=== PATIENT | male | born 1945 | race Caucasian/White ===

== ENCOUNTER 2017-02-18 19:27 | Observation (INO) | payer MEDICARE, BC ==
--- NOTE | 2017-02-18 19:52 | Emergency Department Record ---
History of Present Illness - General Chief Complaint: Fever Stated Complaint: FEVER Time Seen by Provider: 02/18/17 19:48 Source: Patient Mode of Arrival: Ambulatory Limitations: No limitations - History of Present Illness Initial Comments: 71 yo male presents to ED for worsening fevers, chills, and cough symptoms over the past 4-5 days. Patient reports decreased energy and appetite today, reports that he just feels "crappy". Patient denies abdominal pain, but does reports 1 episodes of vomiting 4 days ago. Patient reports recent ill contact ( grand daughter), also reports that he received his influenza vaccine 1 week ago. Patient has a history of IDDM only. MD Complaint: Fever Onset/Timin -: Days(s) Associated Symptoms: Vomiting, Chills, Cough Treatments Prior to Arrival: Acetaminophen Treatment Prior to Arrival Comment:: tylenol at noon - Related Data Home Medications Medication Instructions Recorded Confirmed Last Taken Aspirin Chewable 81 mg PO DAILY 02/18/17 02/18/17 Unknown Cyanocobalamin (Vitamin B-12) 1,000 mcg SQ WEEKLY 02/18/17 02/18/17 Unknown [B-12 Compliance] Escitalopram Oxalate [Lexapro] 10 mg PO DAILY 02/18/17 02/18/17 Unknown Glimepiride [Amaryl] 4 mg PO DAILY 02/18/17 02/18/17 Unknown Insulin Glargine,Hum.rec.anlog 50 unit SQ DAILY 02/18/17 02/18/17 Unknown [Lantus Solostar] Losartan Potassium [Losartan 50 mg PO DAILY 02/18/17 02/18/17 Unknown Potassium] Metformin HCl [Metformin HCl] 1,000 mg PO BID 02/18/17 02/18/17 Unknown Omeprazole [Prilosec] 20 mg PO DAILY 02/18/17 02/18/17 Unknown Simvastatin [Simvastatin] 20 mg PO DAILY 02/18/17 02/18/17 Unknown Sitagliptin Phosphate [Januvia] 100 mg PO DAILY 02/18/17 02/18/17 Unknown Tamsulosin HCl [Flomax] 0.4 mg PO DAILY 02/18/17 02/18/17 Unknown Allergies Allergy/AdvReac Type Severity Reaction Status Date / Time No Known Drug Allergies Allergy Verified 02/18/17 19:34 Travel Screening - Travel/Exposure Within Last 30 Days Have you traveled within the last 30 days?: No - Travel/Exposure Within Last Year Have you traveled outside the [place] in the last year?: Yes Location Detail:: [place] - Additonal Travel Details Have you been exposed to anyone with a communicable illness?: No - Travel Symptoms Symptom Screening: None Review of Systems Constitutional: Reports: Chills, Fever, Malaise, Weakness Eyes: Denies: Eye discharge, Eye pain ENT: Reports: Congestion. Denies: Ear pain, Epistaxis, Throat pain Respiratory: Reports: Cough. Denies: Dyspnea Cardiovascular: Denies: Chest pain, Dyspnea on exertion Endocrine: Reports: Fatigue. Denies: Heat or cold intolerance Gastrointestinal: Reports: Nausea, Vomiting. Denies: Abdominal pain Genitourinary: Denies: Incontinence, Retention Musculoskeletal: Reports: Myalgia. Denies: Arthralgia, Back pain, Gout, Joint swelling Skin: Denies: Bruising, Change in color Neurological: Denies: Abnormal gait, Confusion, Headache, Seizure Psychiatric: Denies: Anxiety Hematological/Lymphatic: Denies: Anemia, Blood Clots Past Medical History - SOCIAL HISTORY Smoking Status: Former smoker Alcohol Use: Occasional Drug Use: None - RESPIRATORY Hx Respiratory Disorders: No - CARDIOVASCULAR Hx Cardio Disorders: No - NEURO Hx Neuro Disorders: No - GI Hx GI Disorders: No - Hx Genitourinary Disorders: Yes Hx Kidney Stones: Yes - ENDOCRINE Hx Endocrine Disorders: Yes Hx Diabetes: Yes - MUSCULOSKELETAL Hx Musculoskeletal Disorders: No - PSYCH Hx Psych Problems: Yes Hx Depression: Yes - HEMATOLOGY/ONCOLOGY Hx Hematology/Oncology Disorders: No Family Medical History Any Significant Family History?: No Physical Exam - General General Appearance: Alert, Oriented x3, Cooperative, Moderate distress Limitations: No limitations - Head Head exam: Atraumatic, Normocephalic, Normal inspection Head exam detail: negative: Abrasion, Contusion, Anaya's sign, General tenderness, Hematoma, Laceration - Eye Eye exam: Normal appearance. negative: Conjunctival injection, Periorbital swelling, Periorbital tenderness, Scleral icterus - ENT Ear exam: negative: Auricular hematoma, Auricular trauma Nasal Exam: negative: Active bleeding, Discharge, Dried blood, Foreign body Mouth exam: negative: Drooling, Laceration, Muffled voice, Tongue elevation - Neck Neck exam: Normal inspection. negative: Meningismus, Tenderness - Respiratory Respiratory exam: Normal lung sounds bilaterally. negative: Rales, Respiratory distress, Rhonchi, Stridor - Cardiovascular Cardiovascular Exam: Regular rate, Normal rhythm, Normal heart sounds - GI/Abdominal GI/Abdominal exam: Soft. negative: Rebound, Rigid, Tenderness - Rectal Rectal exam: Deferred - exam: Deferred - Extremities Extremities exam: Normal inspection. negative: Calf tenderness, Pedal edema, Tenderness - Back Back exam: Denies: CVA tenderness (R), CVA tenderness (L) - Neurological Neurological exam: Alert, Normal gait, Oriented X3 - Psychiatric Psychiatric exam: Normal affect, Normal mood - Skin Skin exam: Normal color. negative: Abrasion Type of lesion: negative: abrasion Course Vital Signs 02/18/17 19:35 Temperature 99.7 F H Pulse Rate 98 H Respiratory 18 Rate Blood Pressure 129/60 Pulse Ox 96 - Reevaluation(s) Reevaluation #1: 02/18/17 20:46 Labs reviewed, WBC 5.4, 87% neutrophils. Hgb 11.8. UA reviewed 2+ bacteria present, 16-20 WBCs present. Lactic acid 1.7. CXR: Emphysematous change, nothing acute. Patient was updated on all results, will initiate treatment with Rocephin and admit for observation. Patient and family updated on all results. Reevaluation #2: 02/18/17 20:59 Case was discussed with Vannesa Toribio, will accept admission for further treatment of the patient's systemic UTI. Medical Decision Making - Lab Data Result diagrams: 02/18/17 20:01 02/18/17 20:01 Disposition Disposition: Admit Clinical Impression: Fever chills UTI (urinary tract infection) Qualifiers: Urinary tract infection type: acute cystitis Hematuria presence: without hematuria Qualified Code(s): N30.00 - Acute cystitis without hematuria Disposition: Still a Patient at [facility] Decision to Admit: Admit from ER Decision to Admit Date: 02/18/17 Decision to Admit Time: 20:53 Condition: (2) Stable Forms: Patient Portal Access Time of Disposition: 20:53 Quality - Quality Measures Quality Measures: N/A - Blood Pressure Screening Does Patient Have Any of the Following: Active Dx of HTN Blood Pressure Classification: Pre-Hypertensive BP Reading Systolic Measurement: 129 Diastolic Measurement: 60 Screening for High Blood Pressure: Patient Exclusion, Hx of HTN [[id number]]
[2017-02-18] MEDS ORDERED: 0.9 % SODIUM CHLORIDE 1000ML 1,000 ML IV SCH (20:00)
[2017-02-18 20:15] LABS: URINE APPEARANCE CLEAR; URINE BILIRUBIN NEGATIVE (NEGATIVE); URINE BLOOD SMALL (NEGATIVE); URINE COLOR YELLOW; URINE GLUCOSE (UA) NEGATIVE (NEGATIVE); URINE KETONE NEGATIVE (NEGATIVE); URINE LEUKOCYTE ESTERASE LARGE (NEGATIVE); URINE NITRITE NEGATIVE (NEGATIVE); URINE PROTEIN TRACE (NEGATIVE)
[2017-02-18 20:15] LABS: BASO % 0.2 % (0-6); EOS % 0.9 % (0-6); HEMATOCRIT 35.1 % (42.0-52.0); HEMOGLOBIN 11.8 gm/dl (14.0-18.0); LYMPH % 7.5 % (16-45); MEAN CELL VOLUME 80.5 fl (81-97); MEAN CORPUSCULAR HGB CONC 33.6 g/dl (32-36); MEAN PLATELET VOLUME 10.1 fl (7.4-10.4); MONO % 6.4 % (0-9); PLATELET COUNT 112 K/uL (130-400); RED BLOOD COUNT 4.36 M/uL (4.40-5.70); RED CELL DISTRIBUTION WIDTH 14.4 % (11.5-14.5); WHITE BLOOD COUNT W/O DIFF 5.4 K/uL (4.2-12.2)
[2017-02-18 20:26] LABS: INFLUENZA A NEGATIVE (NEGATIVE); INFLUENZA B NEGATIVE (NEGATIVE)
[2017-02-18 20:27] LABS: URINE BACTERIA 2+; URINE WBC 16 - 20 (0-2/hpf)
[2017-02-18 20:34] LABS: PLATELET ESTIMATE DECREASED (NORMAL)
[2017-02-18 20:45] LABS: ALB/GLOB RATIO 1.2 (1.1-1.8); ALBUMIN 3.8 g/dL (4.0-5.0); ALKALINE PHOSPHATASE 168 U/L (40-129); ALT/SGPT 21 U/L (<41); AST/SGOT 22 U/L (10.0-50.0); BLOOD UREA NITROGEN 19 mg/dL (8-23); CREATININE 0.9 mg/dL (0.7-1.2); EST GLOMERULAR FILTRATION RATE > 60 mL/min; GLUCOSE,RANDOM 171 mg/dL (74-109)
[2017-02-18] MEDS ORDERED: CEFTRIAXONE SODIUM 1 GM in 0.9 % SODIUM CHLORIDE 100ML 100 ML IVPB ONE (20:52)
[2017-02-18] MEDS ORDERED: ACETAMINOPHEN 500 MG TABLET PO ONE (21:12)
[2017-02-18] MEDS ORDERED: ACETAMINOPHEN 500 MG TABLET PO PRN (21:35)
[2017-02-18] MEDS ORDERED: 0.9 % SODIUM CHLORIDE 1000ML 1,000 ML IV PRN (21:35)
[2017-02-18] MEDS ORDERED: CEFTRIAXONE SODIUM 1 GM in 0.9 % SODIUM CHLORIDE 100ML 100 ML IVPB SCH (21:35)
[2017-02-18] MEDS: METFORMIN 500 MG TABLET PO SCH (23:15)
[2017-02-19] MEDS ORDERED: LEVEMIR FLEXTOUCH 100 UNIT/ML INSULIN PEN SQ SCH (07:00)
[2017-02-19] MEDS ORDERED: PANTOPRAZOLE SODIUM 40 MG TABLET PO SCH (07:00)
[2017-02-19] MEDS: METFORMIN 500 MG TABLET PO SCH (08:17)
[2017-02-19] MEDS ORDERED: GLIMEPIRIDE 2 MG TABLET PO SCH (10:00)
[2017-02-19] MEDS ORDERED: LOSARTAN POTASSIUM 25 MG TABLET PO SCH (10:00)
[2017-02-19] MEDS ORDERED: ESCITALOPRAM 10 MG TABLET PO SCH (10:00)
[2017-02-19] MEDS ORDERED: Non-Formulary MISC (Sitagliptin Phosphate [Januvia] 100 MG) PO SCH (10:00)
[2017-02-19] MEDS ORDERED: TAMSULOSIN HCL 0.4 MG CAP.ER.24H PO SCH (10:00)
[2017-02-19 10:38] LABS: BASO % 0.2 % (0-6); EOS % 1.1 % (0-6); HEMATOCRIT 33.2 % (42.0-52.0); HEMOGLOBIN 10.9 gm/dl (14.0-18.0); LYMPH % 19.6 % (16-45); MEAN CELL VOLUME 82.6 fl (81-97); MEAN CORPUSCULAR HEMOGLOBIN 27.1 pg (27-33); MEAN CORPUSCULAR HGB CONC 32.8 g/dl (32-36); MEAN PLATELET VOLUME 10.5 fl (7.4-10.4); MONO % 13.1 % (0-9); PLATELET COUNT 109 K/uL (130-400); RED BLOOD COUNT 4.02 M/uL (4.40-5.70); RED CELL DISTRIBUTION WIDTH 14.6 % (11.5-14.5); WHITE BLOOD COUNT W/O DIFF 5.4 K/uL (4.2-12.2)
[2017-02-19 11:03] LABS: ALB/GLOB RATIO 1.1 (1.1-1.8); ALBUMIN 3.4 g/dL (4.0-5.0); ALKALINE PHOSPHATASE 142 U/L (40-129); ALT/SGPT 18 U/L (<41); AST/SGOT 21 U/L (10.0-50.0); BLOOD UREA NITROGEN 14 mg/dL (8-23); CREATININE 0.8 mg/dL (0.7-1.2); EST GLOMERULAR FILTRATION RATE > 60 mL/min; GLUCOSE,RANDOM 261 mg/dL (74-109); TOTAL PROTEIN 6.4 g/dL (6.6-8.7)
--- NOTE | 2017-02-19 11:31 | History & Physical ---
History of Present Illness - Date of Service Date of Service for History & Physical: 02/19/17 - History of Present Illness Admitting Diagnosis: UTI. IDDM. Fevers/chills History of Present Illness: 71yo male with CC of fever/chills. Has history of T2DM with insulin use, depression, kidney stones, and frequent UTI's, self catheterization. presents to ED for worsening fevers, chills, and cough symptoms over the past 4- 5 days. Patient reports decreased energy and appetite today, reports that he just feels "crappy". Patient denies abdominal pain, but does reports 1 episodes of vomiting 4 days ago. Patient reports recent ill contact (grand daughter), also reports that he received his influenza vaccine 1 week ago. While in the ED, spiked a fever of 101.1, pulse 74, bp 130/57 and pulse ox 94%. CXR showed signs of emphysema but NAP. influenza negative. CBC showed normal WBC count but 87% neutrophils. HGB low at 11.8. CMP unremarkable. LA wnl. UA showing 2+ bacteria, large leuk esterase, small amount of blood. Urine sent for culture. patient started on rocephin for UTI and admitted. 02/19/17- Patient reports feeling much better today. He denies any further fevers/chills through the night. He was not having urinary tract symptoms but admits that he doesn't always cleanse his cath supplies and does typically reuse them a few times. He says he used to follow with a urologist several years ago and was on daily prophylactic abx at one point. those were discontinued about 2 years ago. pcp: Dr. Beckford in [place]. Travel Screening - Travel/Exposure Within Last 30 Days Have you traveled within the last 30 days?: No - Travel/Exposure Within Last Year Have you traveled outside the [place] in the last year?: No Location Detail:: [place] - Additonal Travel Details Have you been exposed to anyone with a communicable illness?: No - Travel Symptoms Symptom Screening: Fever (Subjective), Joint & Muscle Aches, Weakness, Chills Review of Systems Constitutional: Reports: Chills, Fever Eyes: Denies: Eye discharge, Eye pain ENT: Denies: Congestion, Ear pain, Epistaxis, Throat pain Respiratory: Denies: Cough, Dyspnea Cardiovascular: Denies: Chest pain, Dyspnea on exertion Endocrine: Reports: Fatigue. Denies: Heat or cold intolerance Gastrointestinal: Denies: Abdominal pain, Nausea, Vomiting Genitourinary: Denies: Incontinence, Retention Musculoskeletal: Denies: Arthralgia, Back pain, Gout, Joint swelling, Myalgia Skin: Denies: Bruising, Change in color Neurological: Denies: Abnormal gait, Confusion, Headache, Seizure Psychiatric: Denies: Anxiety Hematological/Lymphatic: Denies: Anemia, Blood Clots Past Medical History - SOCIAL HISTORY Smoking Status: Former smoker Alcohol Use: Rare Drug Use: None - RESPIRATORY Hx Respiratory Disorders: No - CARDIOVASCULAR Hx Cardio Disorders: No - NEURO Hx Neuro Disorders: No Hx Neuropathy: Yes - GI Hx GI Disorders: No Hx Reflux: Yes - Hx Genitourinary Disorders: Yes Hx Kidney Stones: Yes - ENDOCRINE Hx Endocrine Disorders: Yes Hx Diabetes: Yes Hx Thyroid Disease: No - MUSCULOSKELETAL Hx Musculoskeletal Disorders: No - PSYCH Hx Psych Problems: Yes Hx Depression: Yes - HEMATOLOGY/ONCOLOGY Hx Hematology/Oncology Disorders: No Family Medical History Any Significant Family History?: No Hx Cancer: Brother/Sister Hx Diabetes: Father, Mother, Brother/Sister Hx Kidney Disease: Mother, Brother/Sister *Kidney Comment: KIDNEY FAILURE H&P Meds/Allergies - Allergies Allergies: Allergies Allergy/AdvReac Type Severity Reaction Status Date / Time No Known Drug Allergies Allergy Verified 02/18/17 19:34 - Home Medications Home Medications Medication Instructions Recorded Confirmed Last Taken Aspirin Chewable 81 mg PO DAILY 02/18/17 02/18/17 Unknown Cyanocobalamin (Vitamin B-12) 1,000 mcg SQ WEEKLY 02/18/17 02/18/17 Unknown [B-12 Compliance] Escitalopram Oxalate [Lexapro] 10 mg PO DAILY 02/18/17 02/18/17 Unknown Glimepiride [Amaryl] 4 mg PO DAILY 02/18/17 02/18/17 Unknown Insulin Glargine,Hum.rec.anlog 50 unit SQ DAILY 02/18/17 02/18/17 Unknown [Lantus Solostar] Losartan Potassium 50 mg PO DAILY 02/18/17 02/18/17 Unknown Metformin HCl 1,000 mg PO BID 02/18/17 02/18/17 Unknown Omeprazole [Prilosec] 20 mg PO DAILY 02/18/17 02/18/17 Unknown Simvastatin 20 mg PO DAILY 02/18/17 02/18/17 Unknown Sitagliptin Phosphate [Januvia] 100 mg PO DAILY 02/18/17 02/18/17 Unknown Tamsulosin HCl [Flomax] 0.4 mg PO DAILY 02/18/17 02/18/17 Unknown Previous Rx's Medication Instructions Recorded Cefdinir 300 mg PO BID #20 capsule 02/19/17 - Active Medications Active Medications: Current Medications Acetaminophen (Tylenol 500mg Tab) 1,000 mg PO Q6H PRN PRN Reason: PAIN/TEMP Aspirin (Aspirin Chewable) 81 mg PO QHS [facility] Last Admin: 02/18/17 23:14 Dose: 81 mg Escitalopram Oxalate (Lexapro) 10 mg PO DAILY [facility] Last Admin: 02/19/17 10:35 Dose: 10 mg Glimepiride (Amaryl) 4 mg PO DAILY [facility] Last Admin: 02/19/17 10:35 Dose: 4 mg Sodium Chloride () 1,000 mls @ 100 mls/hr IV .Q10H PRN PRN Reason: LARGE VOLUME IV Last Admin: 02/18/17 23:17 Dose: 100 mls/hr Ceftriaxone Sodium 1 gm/ (Sodium Chloride) 100 mls @ 100 mls/hr IVPB 2000 [facility] Stop: 02/24/17 20:01 Insulin Detemir (Levemir Flextouch) 50 unit SQ DAILYAC [facility] Last Admin: 02/19/17 07:06 Dose: 39 unit Losartan Potassium (Cozaar) 50 mg PO DAILY [facility] Last Admin: 02/19/17 10:35 Dose: 50 mg Metformin HCl (Glucophage Ir) 1,000 mg PO BIDWM [facility] Last Admin: 02/19/17 08:17 Dose: 1,000 mg Non-Formulary Medication (Sitagliptin Phosphate [Januvia]) 100 mg PO DAILY [facility] Pantoprazole Sodium (Protonix) 40 mg PO DAILYAC [facility] Last Admin: 02/19/17 07:05 Dose: 40 mg Simvastatin (Zocor) 20 mg PO QHS [facility] Last Admin: 02/18/17 23:11 Dose: 20 mg Tamsulosin HCl (Flomax) 0.4 mg PO DAILY [facility] Last Admin: 02/19/17 10:36 Dose: 0.4 mg Physical Exam - Vital Signs Vital Signs: Vital Signs - Last 24 Hrs Temp Pulse Resp BP BP Pulse Ox 02/19/17 10:34 98.3 F 66 18 123/65 96 02/19/17 07:57 20 02/19/17 03:33 98.1 F 59 L 18 119/62 94 L 02/18/17 23:28 99.1 F 02/18/17 22:28 100.6 F H 02/18/17 21:35 101.1 F H 76 20 130/57 94 L - General General Appearance: Alert, Oriented x3, Cooperative, No acute distress Limitations: No limitations - Head Head exam: Atraumatic, Normocephalic, Normal inspection Head exam detail: negative: Abrasion, Contusion, Anaya's sign, General tenderness, Hematoma, Laceration - Eye Eye exam: Normal appearance. negative: Conjunctival injection, Periorbital swelling, Periorbital tenderness, Scleral icterus - ENT Ear exam: negative: Auricular hematoma, Auricular trauma Nasal Exam: negative: Active bleeding, Discharge, Dried blood, Foreign body Mouth exam: negative: Drooling, Laceration, Muffled voice, Tongue elevation - Neck Neck exam: Normal inspection. negative: Meningismus, Tenderness - Respiratory Respiratory exam: Normal lung sounds bilaterally. negative: Rales, Respiratory distress, Rhonchi, Stridor - Cardiovascular Cardiovascular Exam: Regular rate, Normal rhythm, Normal heart sounds - GI/Abdominal GI/Abdominal exam: Soft. negative: Rebound, Rigid, Tenderness - Rectal Rectal exam: Deferred - exam: Deferred - Extremities Extremities exam: Normal inspection. negative: Calf tenderness, Pedal edema, Tenderness - Back Back exam: Denies: CVA tenderness (R), CVA tenderness (L) - Neurological Neurological exam: Alert, Normal gait, Oriented X3 - Psychiatric Psychiatric exam: Normal affect, Normal mood - Skin Skin exam: Normal color. negative: Abrasion Type of lesion: negative: abrasion Results - Labs Result Diagrams: 02/19/17 10:07 02/19/17 10:07 Labs Last 24 Hours: Laboratory Results - last 24 hr 02/19/17 02/19/17 02/19/17 07:05 10:07 10:07 WBC 5.4 RBC 4.02 L Hgb 10.9 L Hct 33.2 L MCV 82.6 MCH 27.1 MCHC 32.8 RDW 14.6 H Plt Count 109 L MPV 10.5 H Gran % 66.0 Lymphocytes % 19.6 Monocytes % 13.1 H Eosinophils % 1.1 Basophils % 0.2 Sodium 139 Potassium 4.4 Chloride 102 Carbon Dioxide 24.0 Anion Gap 13.0 BUN 14 Creatinine 0.8 Estimated GFR > 60 POC Glucose 139 H Random Glucose 261 H Calcium 8.7 L Total Bilirubin 1.30 H AST 21 ALT 18 Alkaline Phosphatase 142 H Total Protein 6.4 L Albumin 3.4 L Globulin 3.0 Albumin/Globulin Ratio 1.1 VTE H&P Assessment - Risk for VTE Risk for VTE: Yes Risk Level: High Risk Assessment Date: 02/19/17 Risk Assessment Time: 14:58 VTE Orders Placed or Will Be Placed: Yes Plan - Detailed Diagnosis and Plan (1) UTI (urinary tract infection) Status: Acute Qualifiers: Urinary tract infection type: acute cystitis Hematuria presence: without hematuria Qualified Code(s): N30.00 - Acute cystitis without hematuria Base Code: N39.0 - URINARY TRACT INFECTION, SITE NOT SPECIFIED Comment: - UA c/w UTI. urine culture pending. Started on rocephin IV. No elevations in WBC count. Fever is resolved. -will plan to discharge home today. Will have specialty clinic set up appointment with Dr. Brown to establish with a urologist. he is high risk for recurrence with self cath and diabetes, on januvia, needs to have urologist. -contine cefdinir 300mg po bid for 10 days. will contact patient if culture shows resistance -stressed importance of keeping cath supplies clean, staying adequately hydrated -follow up with PCP in 7-10 days (2) Fever chills Status: Acute Base Code: R50.9 - FEVER, UNSPECIFIED Comment: 02/19/17- resolved. afebrile today without any antipyretics. most likely cause is UTI. influenza negative and CXR shows NAP. -continue otc tylenol for fever control as needed (3) Full code status Status: Acute Base Code: Z78.9 - OTHER SPECIFIED HEALTH STATUS Comment: - patient is full code (4) DVT prophylaxis Status: Acute Base Code: [id number] - Comment: 02/19/17- higher risk with age -will start on anticoagulation if stay >24H anticipated
--- NOTE | 2017-02-19 11:38 | Discharge Summary ---
Providers Discharge Summary Date: 02/19/17 Date of admission: 02/18/17 21:17 Expected Date of Discharge: 02/19/17 Attending physician: Kevin Miller Primary care physician: BRISSA DUMONT M.D. Physical Exam - Vital Signs Vital Signs: Vital Signs - Last 24 Hrs Temp Pulse Resp BP BP Pulse Ox 02/19/17 10:34 98.3 F 66 18 123/65 96 02/19/17 07:57 20 02/19/17 03:33 98.1 F 59 L 18 119/62 94 L 02/18/17 23:28 99.1 F 02/18/17 22:28 100.6 F H 02/18/17 21:35 101.1 F H 76 20 130/57 94 L - General General Appearance: Alert, Oriented x3, Cooperative, Moderate distress Limitations: No limitations - Head Head exam: Atraumatic, Normocephalic, Normal inspection Head exam detail: negative: Abrasion, Contusion, Anaya's sign, General tenderness, Hematoma, Laceration - Eye Eye exam: Normal appearance. negative: Conjunctival injection, Periorbital swelling, Periorbital tenderness, Scleral icterus - ENT Ear exam: negative: Auricular hematoma, Auricular trauma Nasal Exam: negative: Active bleeding, Discharge, Dried blood, Foreign body Mouth exam: negative: Drooling, Laceration, Muffled voice, Tongue elevation - Neck Neck exam: Normal inspection. negative: Meningismus, Tenderness - Respiratory Respiratory exam: Normal lung sounds bilaterally. negative: Rales, Respiratory distress, Rhonchi, Stridor - Cardiovascular Cardiovascular Exam: Regular rate, Normal rhythm, Normal heart sounds - GI/Abdominal GI/Abdominal exam: Soft. negative: Rebound, Rigid, Tenderness - Rectal Rectal exam: Deferred - exam: Deferred - Extremities Extremities exam: Normal inspection. negative: Calf tenderness, Pedal edema, Tenderness - Back Back exam: Denies: CVA tenderness (R), CVA tenderness (L) - Neurological Neurological exam: Alert, Normal gait, Oriented X3 - Psychiatric Psychiatric exam: Normal affect, Normal mood - Skin Skin exam: Normal color. negative: Abrasion Type of lesion: negative: abrasion Hospitalization - Hospitalization Admission Diagnosis: UTI. IDDM. Fevers/chills - Problem List/Discharge Diagnosis (1) UTI (urinary tract infection) Status: Acute Discharge Diagnosis: Urinary tract infection type: acute cystitis Hematuria presence: without hematuria Qualified Code(s): N30.00 - Acute cystitis without hematuria Base Code: N39.0 - URINARY TRACT INFECTION, SITE NOT SPECIFIED Comment: - UA c/w UTI. urine culture pending. Started on rocephin IV. No elevations in WBC count. Fever is resolved. -will plan to discharge home today. Will have specialty clinic set up appointment with Dr. Brown to establish with a urologist. he is high risk for recurrence with self cath and diabetes, on januvia, needs to have urologist. -contine cefdinir 300mg po bid for 10 days. will contact patient if culture shows resistance -stressed importance of keeping cath supplies clean, staying adequately hydrated -follow up with PCP in 7-10 days (2) Fever chills Status: Acute Base Code: R50.9 - FEVER, UNSPECIFIED Comment: 02/19/17- resolved. afebrile today without any antipyretics. most likely cause is UTI. influenza negative and CXR shows NAP. -continue otc tylenol for fever control as needed (3) Full code status Status: Acute Base Code: Z78.9 - OTHER SPECIFIED HEALTH STATUS Comment: - patient is full code (4) DVT prophylaxis Status: Acute Base Code: [id number] - Comment: 02/19/17- higher risk with age -will start on anticoagulation if stay >24H anticipated - Hospitalization Course Disposition: Home, Self-Care Abnormal Labs: Abnormal Lab Results 02/19/17 02/19/17 02/19/17 Range/Units 07:05 10:07 10:07 RBC 4.02 L (4.40-5.70) M/uL Hgb 10.9 L (14.0-18.0) gm/dl Hct 33.2 L (42.0-52.0) % RDW 14.6 H (11.5-14.5) % Plt Count 109 L (130-400) K/uL MPV 10.5 H (7.4-10.4) fl Monocytes % 13.1 H (0-9) % POC Glucose 139 H (70-110) mg/dL Random Glucose 261 H (74-109) mg/dL Calcium 8.7 L (8.8-10.2) mg/dL Total Bilirubin 1.30 H (0.2-1.0) mg/dL Alkaline Phosphatase 142 H (40-129) U/L Total Protein 6.4 L (6.6-8.7) g/dL Albumin 3.4 L (4.0-5.0) g/dL Condition at Discharge: (2) Stable Discharge Medications - Discharge Medications Prescriptions: Cefdinir 300 mg PO BID #20 capsule Home Medications: Ambulatory Orders Aspirin Chewable 81 mg PO DAILY 02/18/17 [Last Taken Unknown] Cyanocobalamin (Vitamin B-12) [B-12 Compliance] 1,000 mcg SQ WEEKLY 02/18/17 [ Last Taken Unknown] Escitalopram Oxalate [Lexapro] 10 mg PO DAILY 02/18/17 [Last Taken Unknown] Glimepiride [Amaryl] 4 mg PO DAILY 02/18/17 [Last Taken Unknown] Insulin Glargine,Hum.rec.anlog [Lantus Solostar] 50 unit SQ DAILY 02/18/17 [ Last Taken Unknown] Losartan Potassium 50 mg PO DAILY 02/18/17 [Last Taken Unknown] Metformin HCl 1,000 mg PO BID 02/18/17 [Last Taken Unknown] Omeprazole [Prilosec] 20 mg PO DAILY 02/18/17 [Last Taken Unknown] Simvastatin 20 mg PO DAILY 02/18/17 [Last Taken Unknown] Sitagliptin Phosphate [Januvia] 100 mg PO DAILY 02/18/17 [Last Taken Unknown] Tamsulosin HCl [Flomax] 0.4 mg PO DAILY 02/18/17 [Last Taken Unknown] Cefdinir 300 mg PO BID #20 capsule 02/19/17 [Last Taken Unknown] Discharge Plan - Discharge Instructions Activity at Discharge: Resume Usual Activities As Tolerated Diet at Discharge: Diabetic Diet Instructions: Aviles Catheter Placement and Care (DC), Urinary Traction Infection in Older Adults (DC) Additional Instructions: Follow up with Dr. Brown, urologist. The [facility] specialty clinic should be contacting you to set that up. Start Cefdinir 300mg by mouth twice daily for 10 days starting tonight. We will contact you if antibiotics need to be changed based on the urine culture results. Be sure to drink plenty of water to stay adequately hydrated and make sure cath supplies are cleansed thoroughly. Please call with any questions or concerns Return to ED for any new or worsening symptoms. Quality Measures - Quality Measures Quality Measures: Advance Directives, Documentation of Current Medications in Medical Record, Elder Maltreatment Screen and Follow-Up Plan, Screening for High Blood Pressure and F/U Documented - Current Medications Quality Measure: Measure #130: Documentation of Current Medications Documentation of Current Medications: <Current Medications Documented/Reviewed> [S0004] - Blood Pressure Screening Quality Measure: Screening for High Blood Pressure and Follow-Up Documented Does Patient Have Any of the Following: Active Dx of HTN Blood Pressure Classification: Pre-Hypertensive BP Reading Systolic Measurement: 129 Diastolic Measurement: 60 Screening for High Blood Pressure: Patient Exclusion, Hx of HTN [G9744] - Advance Directives Quality Measure: Measure #47: Care Plan Advance Directives Established: No Advance Directives Information Provided To Patient: Already Provided Advance Directives on File: No Living Will: No Power of Inspector Automatic Typewriter: No Advance Care Planning: <Care Plan/Decision Maker Documented; Discussed & Documented> [0583F] - Elder Abuse Suspicion Index Screening: Elder Abuse Suspicion Index Screening Rely on people for bathing, dressing, shopping, banking, etc: No Prevented from getting food, clothes, medication, etc: No Made to feel shamed or threatened by someone: No Forced to sign papers or use money against will: No Feel afraid, touched in ways not wanted or hurt physically: No Poor eye contact, withdrawn, malnourished, cuts or bruises: No Screening Result: Negative result EASI Reference Information: Mel LEWIS, Anatoly C, Jose D, Aida Ricci.Development and validation of a tool to assist physicians identification of elder abuse: The Elder Abuse Suspicion Index (EASI ). Journal of Elder Abuse and Neglect, 2008; 20 (3): 276-300. - Elder Maltreatment Screen Quality Measures: Elder Maltreatment Screen and Follow-Up Plan Elder Maltreatment Screen: <Negative, No Follow-Up Plan Required> [W0281]
[2017-02-19] MEDS ORDERED: CEFTRIAXONE SODIUM 1 GM in 0.9 % SODIUM CHLORIDE 100ML 100 ML IVPB SCH (20:00)
[2017-02-19] MEDS ORDERED: ASPIRIN 81 MG CHEWABLE TABLET PO SCH (22:00)
[2017-02-19] MEDS ORDERED: SIMVASTATIN 20 MG TABLET PO SCH (22:00)
--- NOTE | 2017-02-20 08:41 | RADIOLOGY REPORT ---
EXAM: CHEST, TWO VIEWS HISTORY: COUGH AND FEVER. TECHNIQUE: PA and lateral upright views of the chest were obtained. Comparison: None. FINDINGS: The heart is normal in size. Calcified mediastinal lymph nodes are present. The mediastinum and pulmonary vasculature are otherwise normal. Bullous emphysematous changes are present within the upper lung beebe, right greater than left. There are no acute infiltrates or effusions. There is no pneumothorax. Degenerative changes are present within the spine. IMPRESSION: 1. NO ACUTE CHEST PATHOLOGY. 2. BULLOUS EMPHYSEMATOUS CHANGES WITHIN THE UPPER LOBES, RIGHT GREATER THAN LEFT. 3. OLD GRANULOMATOUS DISEASE. JOB NUMBER: [id number] [facility]
== END 2017-02-19 11:53 | disposition home or self-care (01) ==
LOC: ER 19:27 → MEDSURG 21:17
PROVIDERS: ADMIT Internal Medicine; ATTEND Internal Medicine
DX: N39.0 Urinary tract infection, site not specified (principal); E11.9 Type 2 diabetes mellitus without complications; Z79.4 Long term (current) use of insulin; Z79.84 Long term (current) use of oral hypoglycemic drugs; Z87.891 Personal history of nicotine dependence
CPT/HCPCS: 99285 ×2; 96374; 83605; 85025; 80053 ×2; 36416; 81001; 82948; 87400; 85027; 71020; G0378 ×2; 99220; J7030

== ENCOUNTER 2017-12-07 19:10 | Emergency (ER) | payer BC, MEDICARE ==
[2017-12-07 19:21] LABS: URINE APPEARANCE SL CLOUDY; URINE BILIRUBIN NEGATIVE (NEGATIVE); URINE BLOOD SMALL (NEGATIVE); URINE COLOR YELLOW; URINE GLUCOSE (UA) NEGATIVE (NEGATIVE); URINE KETONE NEGATIVE (NEGATIVE); URINE LEUKOCYTE ESTERASE LARGE (NEGATIVE); URINE NITRITE POSITIVE (NEGATIVE)
[2017-12-07 19:31] LABS: URINE BACTERIA 4+
--- NOTE | 2017-12-07 19:31 | Emergency Department Record ---
History of Present Illness - General Chief complaint: Male Urogenital Problem Stated complaint: UNABLE TO URINATE Time Seen by Provider: 12/07/17 19:23 Source: Patient - History of Present Illness Initial comments: The patient states that he has been having dysuria and foul smelling urine for the past 3-4 days. He states he can urinate but is not able to fully empty his bladder. This is not new, as he "self-caths" daily for at least the past 4 years. He has a urologist who was treating him for a kidney stone, but has been unable to extract that stone. He has never had a TURP or prostate surgery. He denies back pain, abdominal pain, fevers, chills, nausea or vomiting. He MD Complaint: Dysuria, Other (dysuria, foul smelling, frequency) - Related Data Previous Rx's Medication Instructions Recorded Ciprofloxacin HCl [Cipro] 500 mg PO Q12HR #19 tablet 12/07/17 Allergies Allergy/AdvReac Type Severity Reaction Status Date / Time No Known Drug Allergies Allergy Verified 02/18/17 19:34 Review of Systems Reviewed: No additional complaints except as noted below Constitutional: Reports: As per HPI. Denies: Chills, Fever, Malaise, Night sweats, Weakness, Weight change Eyes: Reports: As per HPI. Denies: Eye discharge, Eye pain, Photophobia, Vision change ENT: Reports: As per HPI. Denies: Congestion, Dental pain, Ear pain, Epistaxis , Hearing loss, Throat pain Respiratory: Reports: As per HPI. Denies: Cough, Dyspnea, Hemoptysis, Stridor, Wheezes Cardiovascular: Reports: As per HPI. Denies: Arrhythmia, Chest pain, Dyspnea on exertion, Edema, Murmurs, Orthopnea, Palpitations, Paroxysmal nocturnal dyspnea, Rheumatic Fever, Syncope Endocrine: Reports: As per HPI. Denies: Fatigue, Heat or cold intolerance, Polydipsia, Polyuria Gastrointestinal: Reports: As per HPI. Denies: Abdominal pain, Constipation, Diarrhea, Hematemesis, Hematochezia, Melena, Nausea, Vomiting Genitourinary: Reports: As per HPI. Denies: Dysuria, Frequency, Hematuria, Incontinence, Retention, Testicular pain, Testicular mass, Urgency Musculoskeletal: Reports: As per HPI. Denies: Arthralgia, Back pain, Gout, Joint swelling, Myalgia, Neck pain Skin: Reports: As per HPI. Denies: Bruising, Change in color, Change in hair/ nails, Lesions, Pruritus, Rash Neurological: Reports: As per HPI. Denies: Abnormal gait, Confusion, Headache, Numbness, Paresthesias, Seizure, Tingling, Tremors, Vertigo, Weakness Psychiatric: Reports: As per HPI. Denies: Anxiety, Auditory hallucinations, Depression, Homicidal thoughts, Suicidal thoughts, Visual hallucinations Hematological/Lymphatic: Reports: As per HPI. Denies: Anemia, Blood Clots, Easy bleeding, Easy bruising, Swollen glands Past Medical History - SOCIAL HISTORY Smoking Status: Former smoker Drug Use: None - RESPIRATORY Hx Respiratory Disorders: No - CARDIOVASCULAR Hx Cardio Disorders: No - NEURO Hx Neuro Disorders: No Hx Neuropathy: Yes - GI Hx GI Disorders: No Hx Reflux: Yes - Hx Genitourinary Disorders: Yes Hx Kidney Stones: Yes - ENDOCRINE Hx Endocrine Disorders: Yes Hx Diabetes: Yes Hx Thyroid Disease: No - MUSCULOSKELETAL Hx Musculoskeletal Disorders: No - PSYCH Hx Psych Problems: Yes Hx Depression: Yes - HEMATOLOGY/ONCOLOGY Hx Hematology/Oncology Disorders: No Family Medical History Hx Cancer: Brother/Sister Hx Diabetes: Father, Mother, Brother/Sister Hx Kidney Disease: Mother, Brother/Sister *Kidney Comment: KIDNEY FAILURE Physical Exam - General General Appearance: Alert, Oriented x3, Cooperative, No acute distress - Head Head exam: Normal inspection - Eye Eye exam: Normal appearance, PERRL Pupils: Normal accommodation - ENT ENT exam: Normal exam, Mucous membranes moist, Normal external ear exam, Normal orophraynx, TM's normal bilaterally Ear exam: Normal external inspection. negative: External canal tenderness Nasal Exam: Normal inspection. negative: Discharge, Sinus tenderness Mouth exam: Normal external inspection, Tongue normal Teeth exam: Normal inspection. negative: Dental caries Throat exam: Normal inspection. negative: Tonsillar erythema, Tonsillar exudate - Neck Neck exam: Normal inspection, Full ROM. negative: Tenderness - Respiratory Respiratory exam: Normal lung sounds bilaterally. negative: Respiratory distress - Cardiovascular Cardiovascular Exam: Regular rate, Normal rhythm, Normal heart sounds - GI/Abdominal GI/Abdominal exam: Soft, Normal bowel sounds. negative: Tenderness - Rectal Rectal exam: Deferred - exam: Deferred, Normal inspection. negative: Scrotal swelling, Urethral discharge - Extremities Extremities exam: Normal inspection, Full ROM, Normal capillary refill. negative: Calf tenderness, Pedal edema, Tenderness - Back Back exam: Reports: Normal inspection, Full ROM. Denies: CVA tenderness (R), CVA tenderness (L), Muscle spasm, Rash noted, Tenderness - Neurological Neurological exam: Alert, CN II-XII intact, Normal gait, Oriented X3, Reflexes normal. negative: Motor sensory deficit - Psychiatric Psychiatric exam: Normal affect, Normal mood - Skin Skin exam: Dry, Intact, Normal color, Warm Course Vital Signs 12/07/17 19:16 Temperature 98.1 F Pulse Rate [ 61 Pulse Ox Probe] Respiratory 20 Rate Blood Pressure 176/78 [Left Arm] Pulse Ox 96 - Reevaluation(s) Reevaluation #1: The patient states he will follow up with his PCP. A urology referral was given for him to follow up as an out patient with. REviewed prior UA/UC results which show sensitivity to cipro. 12/07/17 20:06 Medical Decision Making - Management Options MDM Management: Additional Work-up Planned (e.g. ADM/Transfer/OP Study) ( Urology referral as an outpatient Dr. Syed Consult) - Data Complexity MDM Data: Labs Ordered and/or Reviewed Disposition Disposition: Discharge Clinical Impression: UTI (urinary tract infection) Qualifiers: Urinary tract infection type: catheter-associated UTI Indwelling urinary catheter type: unspecified Encounter type: initial encounter Qualified Code(s): T83.511A - Infection and inflammatory reaction due to indwelling urethral catheter, initial encounter; N39.0 - Urinary tract infection, site not specified Disposition: Home, Self-Care Condition: (1) Good Instructions: Urinary Tract Infection in Men (ED), Catheter-associated Urinary Tract Infection (ED) Additional Instructions: Take antibiotics as directed until gone. Cipro 500 mg twice daily. Indwelling ramon catheter with leg bag for home. Follow up with Dr. Syed Urologist in [facility] as instructed. Tylenol or ibuprofen as drected as needed for pain. PCP referral list per patient request. Prescriptions: Ciprofloxacin HCl [Cipro] 500 mg PO Q12HR #19 tablet Referrals: ROD SYED M.D. [MEDICAL DOCTOR] - Forms: Patient Portal Access Quality - Quality Measures Quality Measures: N/A - Blood Pressure Screening Does Patient Have Any of the Following: No Blood Pressure Classification: Hypertensive Reading Systolic Measurement: 176 Diastolic Measurement: 78 Screening for High Blood Pressure: < First Hypertensive BP, F/U Documented > [ G8950] First Hypertensive Follow-up Interventions: Follow-up with rescreen GT 1 day and LT 4 weeks.
[2017-12-07] MEDS ORDERED: LIDOCAINE UROJECT 10 ML APPL MM ONE (20:01)
[2017-12-07] MEDS ORDERED: CIPROFLOXACIN HCL 500 MG TABLET PO ONE (20:06)
== END 2017-12-07 21:12 | disposition home or self-care (01) ==
LOC: ER 19:10
DX: T83.511A Infection and inflammatory reaction due to indwelling urethral catheter, initial encounter (principal); N39.0 Urinary tract infection, site not specified; E11.9 Type 2 diabetes mellitus without complications; Z79.4 Long term (current) use of insulin; Z87.891 Personal history of nicotine dependence
CPT/HCPCS: 81001; 99283

== ENCOUNTER 2018-12-18 21:52 | Emergency (ER) | payer MEDICARE ==
[2018-12-18] MEDS ORDERED: HEPARIN SODIUM 1000 UNIT/1 ML 10ML VIAL IVP ONE (22:03)
[2018-12-18] MEDS ORDERED: ASPIRIN 81 MG CHEWABLE TABLET PO ONE (22:03)
--- NOTE | 2018-12-18 22:09 | Emergency Department Record ---
History of Present Illness - General Chief complaint: Pain Stated complaint: LT SHOULDER/LT ARM PAIN Time Seen by Provider: 12/18/18 21:55 Source: Patient Mode of Arrival: Ambulatory Limitations: No limitations - History of Present Illness Initial comments: 73 yo male presents to ED for evaluation of left shoulder and neck pain symptoms that began suddenly approximately 90 minutes ago. Patient deniesd chest discomfort, denies recent injury to the left upper extremity on examination. Patient does report a history of DM and HTN, denies having seen a chief radiologic technologist previously. MD Complaint: Joint pain Onset/Timin -: Minutes(s) Location: Left, Shoulder History of Same: No Radiation: Distal Severity scale (1-10): 7 Quality: Aching Consistency: Constant Improves with: Nothing Worsens with: Nothing Associated Symptoms: Denies other symptoms - Related Data Allergies Allergy/AdvReac Type Severity Reaction Status Date / Time No Known Drug Allergies Allergy Verified 02/18/17 19:34 Travel Screening - Travel/Exposure Within Last 30 Days Have you traveled within the last 30 days?: No - Travel/Exposure Within Last Year Have you traveled outside the [place] in the last year?: No - Additonal Travel Details Have you been exposed to anyone with a communicable illness?: No - Travel Symptoms Symptom Screening: None Review of Systems Constitutional: Denies: Chills, Fever, Malaise, Night sweats Eyes: Denies: Eye discharge, Eye pain ENT: Denies: Congestion, Ear pain, Epistaxis Respiratory: Denies: Cough, Dyspnea Cardiovascular: Denies: Chest pain, Dyspnea on exertion Endocrine: Denies: Fatigue, Heat or cold intolerance Gastrointestinal: Denies: Abdominal pain, Nausea, Vomiting Genitourinary: Denies: Incontinence, Retention Musculoskeletal: Reports: Myalgia. Denies: Arthralgia, Back pain Skin: Denies: Bruising, Change in color Neurological: Denies: Abnormal gait, Confusion, Headache, Seizure Psychiatric: Denies: Anxiety Hematological/Lymphatic: Denies: Anemia, Blood Clots Past Medical History - SOCIAL HISTORY Smoking Status: Former smoker Alcohol Use: Rare Drug Use: None - RESPIRATORY Hx Respiratory Disorders: No - CARDIOVASCULAR Hx Cardio Disorders: No - NEURO Hx Neuro Disorders: No Hx Neuropathy: Yes - GI Hx GI Disorders: No Hx Reflux: Yes - Hx Genitourinary Disorders: Yes Hx Kidney Stones: Yes Hx Prostate Problems: Yes - ENDOCRINE Hx Endocrine Disorders: Yes Hx Diabetes: Yes Hx Thyroid Disease: No - MUSCULOSKELETAL Hx Musculoskeletal Disorders: No - PSYCH Hx Psych Problems: Yes Hx Depression: Yes - HEMATOLOGY/ONCOLOGY Hx Hematology/Oncology Disorders: No Family Medical History Any Significant Family History?: Yes Hx Cancer: Brother/Sister Hx Diabetes: Father, Mother, Brother/Sister Hx Kidney Disease: Mother, Brother/Sister *Kidney Comment: KIDNEY FAILURE Physical Exam - General General Appearance: Alert, Oriented x3, Cooperative, Moderate distress - Head Head exam: Atraumatic, Normocephalic, Normal inspection Head exam detail: negative: Abrasion, Contusion, Anaya's sign, General tenderness, Hematoma, Laceration - Eye Eye exam: Normal appearance. negative: Conjunctival injection, Periorbital swelling, Periorbital tenderness, Scleral icterus - ENT Ear exam: negative: Auricular hematoma, Auricular trauma Nasal Exam: negative: Active bleeding, Discharge, Dried blood, Foreign body Mouth exam: negative: Drooling, Laceration, Muffled voice, Tongue elevation - Neck Neck exam: Normal inspection. negative: Meningismus, Tenderness - Respiratory Respiratory exam: Normal lung sounds bilaterally. negative: Rales, Respiratory distress, Rhonchi, Stridor - Cardiovascular Cardiovascular Exam: Regular rate, Normal rhythm, Normal heart sounds - GI/Abdominal GI/Abdominal exam: Soft. negative: Rebound, Rigid, Tenderness - Rectal Rectal exam: Deferred - exam: Deferred - Extremities Extremities exam: Normal inspection. negative: Pedal edema, Tenderness - Back Back exam: Denies: CVA tenderness (R), CVA tenderness (L) - Neurological Neurological exam: Alert, Normal gait, Oriented X3 - Psychiatric Psychiatric exam: Normal affect, Normal mood - Skin Skin exam: Normal color. negative: Abrasion Type of lesion: negative: abrasion Course - Reevaluation(s) Reevaluation #1: 12/18/18 22:06 EKG: NSR 61 Normal axis, normal intervals ST depression V1-V4 Concern for Posterior wall STEMI on examination Posterior EKG ordered ASA 324 ordered as well as Heparin 4000 unit bolus, Nitro qttp to infuse at 40 mcg.min. [facility] 1-call contacted for STAT transfer. Reevaluation #2: 12/18/18 22:19 Case was discussed with Dr. Montelongo, image sent via mobile phone. Patient's pain improved from 12/01 to 07/01. 12/18/18 22:24 Case was discussed with Dr. Means, feels EKG likely represents ischemia vs. STEMI. Awaiting bed placement at this time. Reevaluation #3: 12/18/18 22:32 Laboratory studies were reviewed and appear grossly unremarkable for an acute process. Awaiting bed assignment for transfer. Reevaluation #4: 12/18/18 22:35 Bed assignment has been received, patient is leaving for transport at this time. Medical Decision Making - Lab Data Result diagrams: 12/18/18 20:05 12/18/18 20:05 Critical Care Time Critical Care Time: Yes Total Critical Care Time: 35 Critical Care Time: Diagnosis and treatment for STEMI vs. NSTEMI, coordination of care with [facility] Multiple reassessments and updated with family EKG and Laboratory interpretation. Disposition Disposition: Transfer Clinical Impression: STEMI (ST elevation myocardial infarction) Qualifiers: Involved coronary artery: unspecified coronary artery Qualified Code(s): I21.3 - ST elevation (STEMI) myocardial infarction of unspecified site Disposition: Acute Care Hospital Transfer Transfer To: [facility] Reason For Transfer: STEMI Accepting Physician: Miguelangel Time Discussed w/Accepting Physician: 22:19 Condition: (2) Stable Forms: Patient Portal Access Time of Disposition: 22:19 Quality - Quality Measures Quality Measures: N/A - Blood Pressure Screening Does Patient Have Any of the Following: Active Dx of HTN Blood Pressure Classification: Hypertensive Reading Systolic Measurement: 164 Diastolic Measurement: 73 Screening for High Blood Pressure: Patient Exclusion, Hx of HTN [G9744]
[2018-12-18 22:13] LABS: ABSOLUTE NEUTROPHIL COUNT 5.29; BASO % 0.3 % (0-6); EOS % 2.7 % (0-6); HEMATOCRIT 41.3 % (42.0-52.0); HEMOGLOBIN 13.7 gm/dl (14.0-18.0); LYMPH % 27.3 % (16-45); MEAN CELL VOLUME 83.6 fl (81-97); MEAN CORPUSCULAR HEMOGLOBIN 27.7 pg (27-33); MEAN CORPUSCULAR HGB CONC 33.2 g/dl (32-36); MEAN PLATELET VOLUME 9.7 fl (7.4-10.4); MONO % 8.7 % (0-9); PLATELET COUNT 199 K/uL (130-400); RED BLOOD COUNT 4.94 M/uL (4.40-5.70); RED CELL DISTRIBUTION WIDTH 14.5 % (11.5-14.5); WHITE BLOOD COUNT W/O DIFF 8.7 K/uL (4.2-12.2)
[2018-12-18] MEDS ORDERED: NITROGLYCERIN/D5W 50 MG/250 ML ML IV SCH (22:15)
[2018-12-18] MEDS ORDERED: HEPARIN SODIUM/D5W 25,000 UNITS/500 ML BAG IV SCH (22:15)
[2018-12-18 22:22] LABS: BLOOD UREA NITROGEN 14 mg/dL (8-23); CREATININE 0.9 mg/dL (0.7-1.2); EST GLOMERULAR FILTRATION RATE > 60 mL/min; TOTAL PROTEIN 7.7 g/dL (6.6-8.7)
[2018-12-18 22:24] LABS: GLUCOSE,RANDOM 210 mg/dL (74-109)
[2018-12-18 22:27] LABS: ALB/GLOB RATIO 1.3 (1.1-1.8); ALBUMIN 4.4 g/dL (4.0-5.0); ALKALINE PHOSPHATASE 276 U/L (40-129); ALT/SGPT 21 U/L (<41); AST/SGOT 24 U/L (10.0-50.0)
== END 2018-12-18 22:20 | disposition short-term general hospital (02) ==
LOC: ER 21:52
DX: I21.3 ST elevation (STEMI) myocardial infarction of unspecified site (principal); N20.0 Calculus of kidney; N21.0 Calculus in bladder; M25.512 Pain in left shoulder; I10 Essential (primary) hypertension; E11.9 Type 2 diabetes mellitus without complications; Z87.891 Personal history of nicotine dependence
CPT/HCPCS: 76775; 80053; 84484; 85025; 93005; 93010; 96374; 96375; 96376; 99285